=== PATIENT | female | born 1980 | race Asian ===

== ENCOUNTER 2024-07-29 09:25 | Outpatient (CLI) | payer BC, SELFPAY ==
[2024-07-29 09:51] LABS: Basophils Percent Auto 0.7 % (0.2-1.2); Eosinophils Absolute Auto 0.2 K/mm3 (0-0.3); Eosinophils Percent Auto 4.2 % (0-4.4); Hematocrit 40.1 % (37.0-47.0); Hemoglobin 13.2 g/dL (12.0-15.0); Immature Granulocyte Absolute 0.02 K/mm3 (0.00-0.031); Immature Granulocyte Percent A 0.3 % (0-0.5); Lymphocytes Absolute Auto 1.73 K/mm3 (0.9-3.2); Lymphocytes Percent Auto 30.1 % (18.3-44.2); Mean Corpuscular HGB Conc 32.9 g/dl (32-36); Mean Corpuscular Hemoglobin 31.5 pg (26-34); Mean Corpuscular Volume 95.7 fl (80-100); Mean Platelet Volume 8.5 fl (7.4-10.4); Monocytes Absolute Auto 0.3 K/mm3 (0.1-0.6); Monocytes Percent Auto 5.9 % (2.6-8.5); Neutrophils Absolute Auto 3.4 K/mm3 (1.3-6.7); Neutrophils Percent Auto 58.8 % (45.5-73.1); Platelet Count Result 247 k/mm3 (150-375); Red Blood Count 4.19 M/mm3 (4.2-5.4); White Blood Count 5.8 K/mm3 (4.5-10.0)
[2024-07-29 10:07] LABS: Alanine Aminotransferase 15 U/L (6-35); Albumin Level 4.1 g/dL (3.5-5.1); Alkaline Phosphatase 39 U/L (38-126); Anion Gap 4 mmol/L (4-12); Aspartate Amino Transferase 25 U/L (14-36); Bilirubin,Total 0.4 mg/dL (0.2-1.3); Blood Urea Nitrogen 13 mg/dL (7-17); Calcium 9.2 mg/dL (8.4-10.2); Carbon Dioxide 24 mmol/L (22-30); Chloride 106 mmol/L (98-107); Cholesterol 215 mg/dL (0-200); Estimated Glomerular Filt Rate > 60; Glucose 95 mg/dL (65-110); HDL Direct 88 mg/dL; Potassium 4.1 mmol/L (3.4-5.0); Sodium 134 mmol/L (137-145); Triglycerides 162 mg/dL (<150)
[2024-07-29 10:18] LABS: Hemoglobin A1C 5.7 % (<5.7); LDL Cholesterol Direct 93 mg/dL
== END 2024-07-29 09:26 | disposition home or self-care (01) ==
LOC: ANHLAB 09:27
PROVIDERS: PCP Family Medicine; Visit Provider Physician Assistant Medical
DX: Z13.220 Encounter for screening for lipoid disorders (principal); R73.03 Prediabetes; Z13.29 Encounter for screening for other suspected endocrine disorder; E78.5 Hyperlipidemia, unspecified
CPT/HCPCS: 36415; 80053; 80061; 83036; 84443; 85025

== ENCOUNTER 2025-03-24 13:42 | Outpatient (CLI) | payer BC, SELFPAY ==
--- OUTSIDE RECORDS SUMMARY | 2025-03-24 13:57 | XMS_ITS | Clinical Summary ---
Author Organization [facility] Address [address] [place] [address] Care Team Providers Care Channel Business Manager Name Role Phone Nile Leon MD Primary Care Provider [phone] Allergies No known active allergies Medications mv-min/iron/folic /calcium/vitK (WOMEN'S MULTIVITAMIN ORAL) Take by mouth qd Active ergocalciferol, vitamin D2, (VITAMIN D2 ORAL) Take by mouth 2000iu qd Active norethindrone ac-eth estradioL (MICROGESTIN 08/25) 1-20 mg-mcg per tablet Take 1 tablet by mouth daily 02/25/2023 Active Active Problems Problem Noted Date Diagnosed Date Change in bowel habit 07/07/2021 Overview (07/07/2021): Added automatically from request for surgery [id number] Assessment & Plan (07/07/2021 2:25 PM RAIL CAR LOADER): -recent change, change in caliber to narrow stools -will proceed with colonoscopy to rule out colorectal cancer -discussed that risk of cancer is low, and thin, narrow stools are also seen in IBS and constipation and change in caliber of stools can be a normal variation as people age. -recommended she take Metamucil Fecal smearing 07/07/2021 Assessment & Plan (07/07/2021 2:25 PM RAIL CAR LOADER): -likely pelvic floor dysfunction, will refer to Physical therapy for pelvic floor therapy -Metamucil daily Flatulence 07/07/2021 Assessment & Plan (07/07/2021 2:26 PM RAIL CAR LOADER): -discussed low FODMAP diet, have provided her with some information -it is okay to take probiotics/yogurt, however also discussed that evidence of these being significantly beneficial in IBS/SIBO is low Breast cancer 12/30/2010 Overview (05/11/2022): MANUELA 01/25/11 Stage Ia ( T1cNmi M0) IDC LEFT breast TRIPLE NEGATIVE High grade Ki67 60% BRCA 1/2 NEGATIVE Dx age 30 S/p B/L mastectomies and LND 0:6LNs 1.9cm AC x 4 followed by T x 4 Last Assessment & Plan: 3 years out\ wants to get LMP every month Takes vit D and women's MVI Surgical History Surgery Date Site/Laterality Comments MASTECTOMY BREAST RECONSTRUCTION Medical History Medical History Date Comments Breast cancer (HCC) PONV (postoperative nausea and vomiting) Family History Medical History Relation Name Comments Diabetes Father Hypertension Mother Hypertension Sister Relation Name Status Comments Father Mother Sister Social History Tobacco Use Types Packs/Day Years Used Date Smoking Tobacco: Never Smokeless Tobacco: Never Tobacco Cessation:Counseling Given: Not Answered AUDIT-C Answer Date Recorded Q1: How often do you have a drink containing alc ohol? Monthly or less 08/12/2021 Q2: How many drinks containi ng alcohol do you have on a typical day when you are drinking? 1 or 2 08/12/2021 Frequency of Binge Drinking Not on file 02/2022 Personal Safety Answer Date Recorded Getting School Help Needed Not on file 10/06 Comments No Sex and Gender Information Value Date Recorded Sex Assigned at Not on file Legal Sex Female 10:22 AM CDT Gender Identity Female 08/02/2021 1:08 PM RAIL CAR LOADER Sexual Orientation Straight 08/02/2021 1: 08 PM RAIL CAR LOADER Obstetrics History Last Filed Vital Signs Vital Sign Reading Time Taken Comments Blood Pressure 109/72 05/07/2023 1:58 PM CDT Pulse 75 05/07/2023 1:58 PM CDT Temperature 36.9 C (98.4 F) 05/07/2023 1:58 PM CDT Respiratory Rate 12 08/12/2021 12:30 PM RAIL CAR LOADER Oxygen Saturation 98% 05/07/2023 1:58 PM CDT Inhaled Oxygen Concentration - - Weight 63 kg (139 lb) 05/07/2023 1:58 PM CDT Height 162.6 cm (5' 4) 05/07/2023 1:58 PM CDT Body Mass Index 23.86 05/07/2023 1:58 PM CDT Plan of Treatment Health Maintenance Due Date Last Done Comments Breast Cancer Screening-Mammogram 1981 Cervical Cancer Screening 1981 Depression Screening 1981 Hepatitis C Screening 1981 DTaP/Tdap/Td Vaccine (1 - Tdap) 1992 Varicella Vaccines (1 of 2 - 13+ 2-dose series) 1994 Hepatitis B Screening 1999 Regular Well Visit/Exam 18-64 1999 HPV Vaccines (1 - 3-dose SCD M series) 2008 Covid-19 Vaccine (2023-2 5 season) 2024 06/07/2021, 11/05/2020, 10/15/2020 Influenza Vaccine (#1) 2025 , 06/02/2019, 05/23/2018 Pneumococcal vaccine <65 Aged Out No longer eligible based on patient's age to complete this topic Insurance [facility] Advance Directives For more information, please contact: [phone] * Full Code (Latest Code Status on File) Date Activated Date Inactivated Comments 08/12/2021 10:24 AM 08/12/2021 5:02 PM Care Teams Channel Business Manager Relationship Specialty Start Date End Date Nile Leon MD PCP - General Family Medicine 07/07/21
--- OUTSIDE RECORDS SUMMARY | 2025-03-24 13:57 | XMS_ITS | Clinical Summary ---
Author Organization [facility] Address [address] [place] [address] Care Team Providers Care Ice Plant Operator Name Role Phone Unavailable Primary Care Provider Unavailabl e Immunizations Immunization Administration Dates Next Due Covid-19, Mrna, Lnp-s, Pf, 30 Mcg/0.3 Ml Dose (P fizer) 11/05/2020,10/15/2020 Social History Tobacco Use Types Packs/Day Years Used Date Smoking Tobacco: Never Assessed Comments Unknown Sex and Gender Information Value Date Recorded Sex Assigned at Not on file Legal Sex Female 11:07 AM CALL CENTER SPECIALIST Gender Identity Not on file Sexual Orientation Not on file Plan of Treatment Health Maintenance Due Date Last Done Comments Hepatitis C Virus (HCV) Screening 1981 TdaP Immunization 1981 Hepatitis B Immunization (1 of 3 - 19+ 3-dose series) 2000 Pap Smear 2002 Human Papillomavirus (HPV) Immunization (1 - 3-dose SCDM series) 2008 Cervical Cancer Screening (CCS) 2011 HPV/Cotest 2011 SARS-COV-2 Immunization ( season) 2024 11/05/2020, 10/15/2020 Influenza Immunization (#1) 04/06/202505/07, 05/23/2018 Respiratory Syncytial Virus (RSV) Immunization (Adult) (1 - 1-dose 75+ series) 2056 Meningococcal Immunization (ACWY) Aged Out No longer eligible b ased on patient's age to complete this topic Pneumococcal Immunization Combined Aged Out No longer eligible b ased on patient's age to complete this topic Rotavirus Immunization Aged Out No lo nger eligible based on patient's age to complete this topic
[2025-03-24 14:20] LABS: Hematocrit 40.2 % (37.0-47.0); Hemoglobin 13.4 g/dL (12.0-15.0); Immature Granulocyte Percent A 0.2 % (0-0.5); Lymphocytes Absolute Auto 1.75 K/mm3 (0.9-3.2); Mean Corpuscular HGB Conc 33.3 g/dl (32-36); Mean Corpuscular Hemoglobin 31.5 pg (26-34); Mean Corpuscular Volume 94.6 fl (80-100); Nucleated Red Blood Cells Absolute Auto 0.000 K/mm3 (0.0-0.012); Nucleated Red Blood Cells Perc 0.0 % (0.0-0.2); Platelet Count Result 263 k/mm3 (150-375); Red Blood Count 4.25 M/mm3 (4.2-5.4); White Blood Count 8.7 K/mm3 (4.5-10.0)
[2025-03-24 14:23] LABS: Anion Gap 7 mmol/L (4-12); Blood Urea Nitrogen 13 mg/dL (7-17); Calcium 9.2 mg/dL (8.4-10.2); Carbon Dioxide 23 mmol/L (22-30); Chloride 104 mmol/L (98-107); Estimated Glomerular Filt Rate > 60; Glucose 92 mg/dL (65-110); Potassium 4.2 mmol/L (3.4-5.0); Sodium 134 mmol/L (137-145)
[2025-03-24 14:59] LABS: Thyroid Stimulating Hormone 0.747 uIU/mL (0.465-4.680)
== END 2025-03-24 13:43 | disposition home or self-care (01) ==
PROVIDERS: PCP Family Medicine; Visit Provider Physician Assistant Medical
DX: R00.2 Palpitations (principal)
CPT/HCPCS: 36415; 80048; 84443; 85025

== ENCOUNTER 2025-04-14 10:14 | Outpatient (CLI) | payer BC, SELFPAY ==
[2025-04-14 11:34] LABS: Sodium 135 mmol/L (137-145)
--- OUTSIDE RECORDS SUMMARY | 2025-04-14 11:44 | XMS_ITS | Clinical Summary ---
Author Organization [facility] Address [address] [place] [address] Care Team Providers Care Staff Air Tactical Officer Name Role Phone Unavailable Primary Care Provider Unavailabl e Immunizations Immunization Administration Dates Next Due Covid-19, Mrna, Lnp-s, Pf, 30 Mcg/0.3 Ml Dose (P fizer) 11/05/2020,10/15/2020 Social History Tobacco Use Types Packs/Day Years Used Date Smoking Tobacco: Never Assessed Comments Unknown Sex and Gender Information Value Date Recorded Sex Assigned at Not on file Legal Sex Female 11:07 AM ELECTRICIAN WIRING Gender Identity Not on file Sexual Orientation [...]
--- OUTSIDE RECORDS SUMMARY | 2025-04-14 11:44 | XMS_ITS | Clinical Summary ---
Author Organization [facility] Address [address] [place] [address] Care Team Providers Care Worm Farmer Name Role Phone Nile Leon MD Primary Care Provider [phone] Allergies No known active allergies Medications mv-min/iron/folic [...] (07/07/2021): Added automatically from request for surgery [id number] Assessment & Plan (07/07/2021 2:25 PM ACCESS COORDINATOR): -recent change, change in caliber to narrow stools -will proceed with colonoscopy to rule out colorectal cancer -discussed that risk of cancer is low, and thin, narrow stools are also seen in IBS and constipation and change in caliber of stools can be a normal variation as people age. -recommended she take Metamucil Fecal smearing 07/07/2021 Assessment & Plan (07/07/2021 2:25 PM ACCESS COORDINATOR): -likely pelvic floor dysfunction, will refer to Physical therapy for pelvic floor therapy -Metamucil daily Flatulence 07/07/2021 Assessment & Plan (07/07/2021 2:26 PM ACCESS COORDINATOR): -discussed low FODMAP diet, have provided her [...] CDT Gender Identity Female 08/02/2021 1:08 PM ACCESS COORDINATOR Sexual Orientation Straight 08/02/2021 1: 08 PM ACCESS COORDINATOR Obstetrics History Last Filed Vital Signs Vital Sign Reading Time Taken Comments Blood Pressure 109/72 05/07/2023 1:58 PM CDT Pulse 75 05/07/2023 1:58 PM CDT Temperature 36.9 C (98.4 F) 05/07/2023 1:58 PM CDT Respiratory Rate 12 08/12/2021 12:30 PM ACCESS COORDINATOR Oxygen Saturation 98% 05/07/2023 1:58 PM CDT [...] patient's age to complete this topic Insurance [facility] [employer] Advance Directives For more information, please contact: [phone] * Full Code (Latest Code Status on File) Date Activated Date Inactivated Comments 08/12/2021 10:24 AM 08/12/2021 5:02 PM Care Teams Worm Farmer Relationship Specialty Start Date End Date Nile Leon MD PCP - General Family Medicine 07/07/21
--- NOTE | 2025-04-21 12:21 | WPDHOLTEREM ---
Holter/Event Monitor Holter/Event Monitor Date of procedure: 04/14/25 Holter/Event Procedure: 3-7 Day Holter Monitor Indications: Palpitations Conclusion: 1. 3 days holter monitor on 04/14/25. 2. Underlying rhythm is sinus rhythm. HR range 50-136 bpm; average HR 75 bpm. 3. There are rare premature supraventricular complexes and rare supraventricular couplets. No supraventricular tachycardia. 4. There are rare premature ventricular complexes and rare ventricular couplets. No ventricular tachycardia. 5. No significant pauses greater than 3 seconds. 6. Patient reports 6 episodes of symptoms palpitations which demonstrate sinus rhythm, HR range 79-112 bpm with 4 episodes with PVC's.
== END 2025-04-14 10:15 | disposition home or self-care (01) ==
PROVIDERS: PCP Family Medicine; Visit Provider Physician Assistant Medical
DX: E87.1 Hypo-osmolality and hyponatremia (principal); R00.2 Palpitations
CPT/HCPCS: 36415; 84295; 84300; 93242

== ENCOUNTER 2025-04-14 14:50 | Outpatient (CLI) | payer BC, SELFPAY ==
--- OUTSIDE RECORDS SUMMARY | 2025-04-14 16:18 | XMS_ITS | Clinical Summary ---
Author Organization [facility] Address [address] [place] [address] Care Team Providers Care Call Center Dispatcher Name Role Phone Unavailable Primary Care Provider Unavailabl e Immunizations Immunization Administration Dates Next Due Covid-19, Mrna, Lnp-s, Pf, 30 Mcg/0.3 Ml Dose (P fizer) 11/05/2020,10/15/2020 Social History Tobacco Use Types Packs/Day Years Used Date Smoking Tobacco: Never Assessed Comments Unknown Sex and Gender Information Value Date Recorded Sex Assigned at Not on file Legal Sex Female 11:07 AM TOOL DESIGNER Gender Identity Not on file Sexual Orientation [...]
--- OUTSIDE RECORDS SUMMARY | 2025-04-14 16:18 | XMS_ITS | Clinical Summary ---
Author Organization [facility] Address [address] [place] [address] Care Team Providers Care Clinical Informatics Educator Name Role Phone Nile Leon MD Primary Care Provider [phone] Allergies No known active allergies Medications mv-min/iron/folic [...] (07/07/2021): Added automatically from request for surgery [id number] Assessment & Plan (07/07/2021 2:25 PM MILKING MACHINE TECHNICIAN): -recent change, change in caliber to narrow stools -will proceed with colonoscopy to rule out colorectal cancer -discussed that risk of cancer is low, and thin, narrow stools are also seen in IBS and constipation and change in caliber of stools can be a normal variation as people age. -recommended she take Metamucil Fecal smearing 07/07/2021 Assessment & Plan (07/07/2021 2:25 PM MILKING MACHINE TECHNICIAN): -likely pelvic floor dysfunction, will refer to Physical therapy for pelvic floor therapy -Metamucil daily Flatulence 07/07/2021 Assessment & Plan (07/07/2021 2:26 PM MILKING MACHINE TECHNICIAN): -discussed low FODMAP diet, have provided her [...] CDT Gender Identity Female 08/02/2021 1:08 PM MILKING MACHINE TECHNICIAN Sexual Orientation Straight 08/02/2021 1: 08 PM MILKING MACHINE TECHNICIAN Obstetrics History Last Filed Vital Signs Vital Sign Reading Time Taken Comments Blood Pressure 109/72 05/07/2023 1:58 PM CDT Pulse 75 05/07/2023 1:58 PM CDT Temperature 36.9 C (98.4 F) 05/07/2023 1:58 PM CDT Respiratory Rate 12 08/12/2021 12:30 PM MILKING MACHINE TECHNICIAN Oxygen Saturation 98% 05/07/2023 1:58 PM CDT [...] patient's age to complete this topic Insurance [facility] [employer] Advance Directives For more information, please contact: [phone] * Full Code (Latest Code Status on File) Date Activated Date Inactivated Comments 08/12/2021 10:24 AM 08/12/2021 5:02 PM Care Teams Clinical Informatics Educator Relationship Specialty Start Date End Date Nile Leon MD PCP - General Family Medicine 07/07/21
== END 2025-04-14 14:51 | disposition home or self-care (01) ==
LOC: ANHLAB 14:51
PROVIDERS: PCP Family Medicine; Visit Provider Physician Assistant Medical
DX: E87.1 Hypo-osmolality and hyponatremia (principal)
CPT/HCPCS: 84300

== ENCOUNTER 2025-05-25 17:18 | Outpatient (CLI) | payer BC, SELFPAY ==
[2025-05-25 17:59] LABS: Sodium 134 mmol/L (137-145)
--- OUTSIDE RECORDS SUMMARY | 2025-05-25 19:02 | XMS_ITS | Clinical Summary ---
Author Organization [facility] Address [address] [place] [address] Care Team Providers Care Senior Report Developer Name Role Phone Unavailable Primary Care Provider Unavailabl e Immunizations Immunization Administration Dates Next Due Covid-19, Mrna, Lnp-s, Pf, 30 Mcg/0.3 Ml Dose (P fizer) 11/05/2020,10/15/2020 Social History Tobacco Use Types Packs/Day Years Used Date Smoking Tobacco: Never Assessed Comments Unknown Sex and Gender Information Value Date Recorded Sex Assigned at Not on file Legal Sex Female 11:07 AM MONEY ROOM SUPERVISOR Gender Identity Not on file Sexual Orientation Not on file Plan of Treatment Health Maintenance Due Date Last Done Comments Hepatitis C Virus (HCV) Screening 1981 TdaP Immunization 1981 Hepatitis B Immunization (1 of 3 - 19+ 3-dose series) 2000 Pap Smear 2002 Human Papillomavirus (HPV) Immunization (1 - 3-dose SCDM series) 2008 Cervical Cancer Screening (CCS) 2011 HPV/Cotest 2011 Influenza Immunization (#1) 04/06/202505/07, 05/23/2018 SARS-COV-2 Immunization ( season) 2025 11/05/2020, 10/15/2020 Respiratory Syncytial Virus (RSV) Immunization (Adult) (1 [...]
--- OUTSIDE RECORDS SUMMARY | 2025-05-25 19:02 | XMS_ITS | Clinical Summary ---
Author Organization [facility] Address [address] [place] [address] Care Team Providers Care Commercial Attorney Name Role Phone Nile Leon MD Primary Care Provider [phone] Allergies No known active allergies Medications mv-min/iron/folic [...] (07/07/2021): Added automatically from request for surgery [id number] Assessment & Plan (07/07/2021 2:25 PM ANIMAL ASSISTED THERAPIST): -recent change, change in caliber to narrow stools -will proceed with colonoscopy to rule out colorectal cancer -discussed that risk of cancer is low, and thin, narrow stools are also seen in IBS and constipation and change in caliber of stools can be a normal variation as people age. -recommended she take Metamucil Fecal smearing 07/07/2021 Assessment & Plan (07/07/2021 2:25 PM ANIMAL ASSISTED THERAPIST): -likely pelvic floor dysfunction, will refer to Physical therapy for pelvic floor therapy -Metamucil daily Flatulence 07/07/2021 Assessment & Plan (07/07/2021 2:26 PM ANIMAL ASSISTED THERAPIST): -discussed low FODMAP diet, have provided her [...] CDT Gender Identity Female 08/02/2021 1:08 PM ANIMAL ASSISTED THERAPIST Sexual Orientation Straight 08/02/2021 1: 08 PM ANIMAL ASSISTED THERAPIST Obstetrics History Last Filed Vital Signs Vital Sign Reading Time Taken Comments Blood Pressure 109/72 05/07/2023 1:58 PM CDT Pulse 75 05/07/2023 1:58 PM CDT Temperature 36.9 C (98.4 F) 05/07/2023 1:58 PM CDT Respiratory Rate 12 08/12/2021 12:30 PM ANIMAL ASSISTED THERAPIST Oxygen Saturation 98% 05/07/2023 1:58 PM CDT [...] 3-dose SCD M series) 2008 Covid-19 Vaccine (2024-2 6 season) 2025 06/07/2021, 11/05/2020, 10/15/2020 Influenza Vaccine (#1) 2025 , 06/02/2019, 05/23/2018 Pneumococcal vaccine <65 Aged Out No longer eligible based on patient's age to complete this topic Insurance [facility] [employer] Advance Directives For more information, please contact: [phone] * Full Code (Latest Code Status on File) Date Activated Date Inactivated Comments 08/12/2021 10:24 AM 08/12/2021 5:02 PM Care Teams Commercial Attorney Relationship Specialty Start Date End Date Nile Loen MD PCP - General Family Medicine 07/07/21
--- OUTSIDE RECORDS SUMMARY | 2025-05-25 19:02 | XMS_ITS | Clinical Summary ---
Author Organization [facility] Address [facility] [place] [address] Care Team Providers Care Concrete Fence Builder Name Role Phone Nile Leon MD Primary Care Provider [phone] Encounters Date Type Department Care Team Description 04/30[facility] [address] [phone] Zita Barrera, A Consult from Last 3 Months Social History Tobacco Use Types Packs/Day Years Used Date Smoking Tobacco: Never Assessed Comments Unknown Sex and Gender Information Value Date Recorded Sex Assigned at Not on file Legal Sex Female 10:17 AM CDT Gender Identity Not on file Sexual Orientation Not on file Plan of Treatment Upcoming Encounters Date Type Department Care Team (Late st Contact Info) Description 06/18/2025 1:00 PM CLINICAL RN Office Visit [facility], [address] [phone] Dyllan Davis MD [address] [facility] [address] [place] [address] [phone] Health Maintenance Due Date Last Done Comments Cervical Cancer Screening Pa p Smear (Age 30 to 64) Every 3 Years 1981 Annual Physical 1984 Hepatitis C 1999 DTaP, Tdap and Td Vaccines ( 1 - Tdap) 2000 Hepatitis B Vaccines (1 of 3 - 19+ 3-dose series) 2000 HPV Vaccines (1 - 3-dose SCD M series) 2008 Cervical Cancer Screening Pa p with HPV Testing (Age 30 to 64) Every 5 Years 2011 Cervical Cancer Screening with HPV 2011 Mammogram Screening 2021 COVID-19 Vaccine ( - 2023-2 5 season) 2025 Influenza Adult (#1) 2025 Hepatitis A Vaccines Aged Out No long er eligible based on patient's age to complete this topic Meningococcal B Vaccine Aged Out No l onger eligible based on patient's age to complete this topic Meningococcal Vaccine Aged Out No jason adam eligible based on patient's age to complete this topic Pneumococcal Vaccine: Pediat rics (0 to 5 Years) and At-Risk Patients (6 to 49 Years) Aged Out No longer eligible b ased on patient's age to complete this topic RSV Immunizations Under 20 Months Aged Out No longer eligible based on patient's age to complete this topic Insurance [facility] Care Teams Concrete Fence Builder Relationship Specialty Start Date End Date Nile Leon MD [address] [place] [address] PCP - General FAMILY PRACTICE 04/06/25
== END 2025-05-25 17:19 | disposition home or self-care (01) ==
LOC: ANHLAB 17:18
PROVIDERS: PCP Family Medicine; Visit Provider Physician Assistant Medical
DX: E87.1 Hypo-osmolality and hyponatremia (principal)
CPT/HCPCS: 36415; 84295